=== PATIENT | female | born 1980 | race Hispanic/Latino ===

== ENCOUNTER 2021-03-06 03:49 | Emergency (ER) | payer SELFPAY ==
[~2021-03-06] VITALS: Ht 162.6 cm; Wt 72.6 kg
[2021-03-06 05:38] LABS: BASOPHILS % (AUTO) 0.1 % (0.0-5.0); EOSINOPHILS % (AUTO) 1.7 % (0.0-8.0); HEMATOCRIT 39.8 % (36-48); LYMPHOCYTES % (AUTO) 15.3 % (21.0-51.0); MEAN CORPUSCULAR HEMOGLOBIN 28.7 pg (27.0-33.0); MEAN CORPUSCULAR HGB CONC 33.2 g/dL (32.0-36.0); MEAN CORPUSCULAR VOLUME 86.5 fL (79-99); MONOCYTES % (AUTO) 6.7 % (3.0-13.0); NEUTROPHILS % (AUTO) 76.1 % (40.0-77.0); PLATELET COUNT (AUTO) 182 K/uL (130-400); RED CELL DISTRIBUTION WIDTH 12.8 % (11.0-15.5); WHITE BLOOD COUNT (AUTO) 7.2 K/uL (4.8-10.8)
[2021-03-06 05:55] LABS: ALBUMIN 3.5 g/dL (3.5-5.0); BILIRUBIN,TOTAL 0.4 mg/dL (0.2-1.0); CREATININE 0.7 mg/dL (0.5-1.5); POTASSIUM 3.6 mmol/L (3.5-5.1); TOTAL PROTEIN, SERUM 7.7 g/dL (6.0-8.3)
[2021-03-06] MEDS ORDERED: MAG/ALUM/SIMETH 30 ML UDCUP PO ONE (06:00)
[2021-03-06] MEDS ORDERED: LIDOCAINE HCL 2% VISCOUS 15 ML UDCUP PO ONE (06:00)
[2021-03-06] MEDS ORDERED: PANT40GR PO (06:11)
[2021-03-06 06:30] VITALS: BP 145/82
[2021-03-06] MEDS ORDERED: D-ME118S47 PO (17:52)
[2021-03-06] MEDS ORDERED: ONDA4TAB4 PO (17:52)
[2021-03-06] MEDS ORDERED: ACET-66 PO (17:52)
[2021-03-06] MEDS ORDERED: AZIT1PAC7 PO (17:52)
[2021-03-06] MEDS ORDERED: BUDE90AE IH (17:52)
== END 2021-03-06 06:25 | disposition home or self-care (01) ==
LOC: EDH 03:49
DX: U07.1 COVID-19 (principal); K29.70 Gastritis, unspecified, without bleeding; E11.9 Type 2 diabetes mellitus without complications; E78.00 Pure hypercholesterolemia, unspecified; I10 Essential (primary) hypertension
CPT/HCPCS: 36415; 80053; 85025; 87635; 87804 ×2; 99283; C9803

== ENCOUNTER 2021-03-06 16:48 | Emergency (ER) | payer SELFPAY ==
[~2021-03-06] VITALS: Ht 162.6 cm; Wt 72.6 kg
[~2021-03-06 16:48] MED LIST: PANT40GR PO
[2021-03-06] MEDS ORDERED: ONDANSETRON 4MG INJ ONE (17:21)
[2021-03-06] MEDS ORDERED: AZITHROMYCIN 250 MG TABLET PO ONE ×2 (17:21→17:30)
[2021-03-06] MEDS ORDERED: GUAIFENESIN/DEXTROMETHORPHAN 1 EACH TAB.SR.12H PO ONE ×2 (17:22→17:30)
[2021-03-06] MEDS ORDERED: 0.9%NACL 1000ML 1,000 ML IV ONE (17:30)
[2021-03-06] MEDS ORDERED: ONDANSETRON 4MG INJ IVP ONE (17:30)
[2021-03-06] MEDS ORDERED: AZIT1PAC7 PO (17:52)
[2021-03-06] MEDS ORDERED: D-ME118S47 PO (17:52)
[2021-03-06] MEDS ORDERED: ONDA4TAB4 PO (17:52)
[2021-03-06] MEDS ORDERED: ACET-66 PO (17:52)
[2021-03-06] MEDS ORDERED: BUDE90AE IH (17:52)
[2021-03-06 18:15] VITALS: BP 141/81
== END 2021-03-06 18:16 | disposition home or self-care (01) ==
LOC: EDH 16:48
DX: U07.1 COVID-19 (principal); E11.9 Type 2 diabetes mellitus without complications; E78.00 Pure hypercholesterolemia, unspecified; I10 Essential (primary) hypertension; K21.9 Gastro-esophageal reflux disease without esophagitis; Z79.51 Long term (current) use of inhaled steroids; Z79.899 Other long term (current) drug therapy; Z87.19 Personal history of other diseases of the digestive system
CPT/HCPCS: 96361; 71045; 96374; 99283; J2405; J7030

== ENCOUNTER 2021-03-07 06:14 | Emergency (ER) | payer OTHER, SELFPAY ==
[~2021-03-07] VITALS: Ht 162.6 cm; Wt 72.6 kg
[~2021-03-07 06:14] MED LIST changes: +ACET-66 PO; +AZIT1PAC7 PO; +BUDE90AE IH; +D-ME118S47 PO; +ONDA4TAB4 PO
[2021-03-07] MEDS ORDERED: ONDANSETRON ODT 4MG TAB SL ONE (08:00)
[2021-03-07 09:15] VITALS: BP 125/78
== END 2021-03-07 09:18 | disposition home or self-care (01) ==
LOC: EDH 06:14
DX: U07.1 COVID-19 (principal); K21.9 Gastro-esophageal reflux disease without esophagitis; R11.2 Nausea with vomiting, unspecified; I10 Essential (primary) hypertension; E11.9 Type 2 diabetes mellitus without complications; E78.00 Pure hypercholesterolemia, unspecified; Z79.51 Long term (current) use of inhaled steroids; Z79.899 Other long term (current) drug therapy; Z87.19 Personal history of other diseases of the digestive system
CPT/HCPCS: 76705